=== PATIENT | female | born 1990 | race Caucasian/White ===

== ENCOUNTER 2016-12-30 22:58 | Emergency (ER) | payer OTHER ==
[2016-12-30] MEDS ORDERED: SODIUM CHLORIDE 0.9% 1,000 ML IV ONE (23:23)
[2016-12-30] MEDS ORDERED: ONDANSETRON 4 MG/2 ML VIAL IVP STA (23:23)
[2016-12-30] MEDS ORDERED: ONDANSETRON 4 MG/2 ML VIAL ONE (23:31)
[2016-12-31] LABS: BILIRUBIN,URINE NEGATIVE (NEGATIVE); PH,URINE 6.5 PH (5.0-7.5)
[2016-12-31 00:05] LABS: HCG UR QUAL NEGATIVE; UA CHARGE (STRIP ONLY) YES; UR CULTURE IF IND NOT INDICATED
[2016-12-31 00:06] LABS: ALBUMIN/GLOBULIN RATIO 1.7 (1.0-2.2); BILIRUBIN,TOTAL 0.6 mg/dL (0.2-1.0); CALCIUM 9.6 mg/dL (8.5-10.3); CREATININE 0.7 mg/dL (0.4-1.0); POTASSIUM 3.7 mmol/L (3.5-5.0); TOTAL PROTEIN 7.5 g/dL (6.7-8.2)
[2016-12-31] MEDS ORDERED: HYDROmorphone 1 MG/ML SYRINGE ONE ×2 (00:07→02:33)
[2016-12-31 00:09] LABS: BASOPHILS % (AUTO) 0.4 %; EOSINOPHILS # (AUTO) 0.2 10^3/uL (0.0-0.7); EOSINOPHILS % (AUTO) 1.5 %; HCT - HEMATOCRIT 40.1 % (37.0-47.0); HGB - HEMOGLOBIN 13.4 g/dL (12.0-16.0); LYMPHOCYTES % (AUTO) 36.6 %; MEAN CORPUSCULAR HEMOGLOBIN 29.8 pg (27.0-31.0); MEAN CORPUSCULAR HGB CONC 33.5 g/dL (32.0-36.0); MEAN CORPUSCULAR VOLUME 88.8 fL (81.0-99.0); MEAN PLATELET VOLUME 7.7 fL (7.9-10.8); MONOCYTES # (AUTO) 0.5 10^3/uL (0.0-1.0); MONOCYTES % (AUTO) 4.8 %; NEUTROPHILS # (AUTO) 6.1 10^3/uL (1.5-6.6); NEUTROPHILS % (AUTO) 56.7 %; RED BLOOD COUNT 4.51 10^6/uL (4.20-5.40); RED CELL DISTRIBUTION WIDTH 13.9 % (12.0-15.0); UNCORRECTED WHITE BLOOD COUNT 10.8 x10^3/uL; WHITE BLOOD COUNT 10.8 x10^3/uL (4.8-10.8)
--- NOTE | 2016-12-31 01:07 | CT Preliminary Report ---
Exam: CT Abdomen/Pelvis W/O IMPRESSION: 1. Nonobstructing 2 mm stone in the left kidney. No other urolithiasis seen. 2. Appendix is retrocecal and appears normal. 3. Possible complex 3.6 cm left ovarian cyst. [facility] SITE ID: [id number]
--- NOTE | 2016-12-31 01:09 | CT Report ---
EXAM: CT ABDOMEN AND PELVIS (CT KUB) EXAM DATE: 12/31/2016 12:42 AM. CLINICAL HISTORY: Right side pain. COMPARISONS: None. TECHNIQUE: Routine axial helical CT imaging was performed through the abdomen and pelvis without IV c ontrast. Reconstructions: Coronal and sagittal. In accordance with CT protocol optimization, one or more of the following dose reduction techniques w ere utilized for this exam: automated exposure control, adjustment of mA and/or KV based on patient s ize, or use of iterative reconstructive technique. FINDINGS: Lung Bases: Minimal bibasilar atelectasis. Right Kidney/Ureter: No stones, hydronephrosis, or hydroureter. No perinephric fat stranding. Left Kidney/Ureter: Nonobstructing 2 mm stone in the kidney. No ureteral stone or obstructive uropath y identified. Other Solid Organs: Noncontrast images of the solid organs are grossly unremarkable. Gallbladder/Bile Ducts: Status post cholecystectomy. Peritoneal Cavity: No bowel obstruction seen. No diverticulitis. No free air or free fluid. No lympha denopathy. Appendix is retrocecal and appears normal. Pelvic Organs: Masslike area in the left adnexa measuring about 3.6 cm, possibly complex ovarian cyst . Visualized pelvic organs are otherwise unremarkable. Vasculature: Unremarkable. Other: None. IMPRESSION: 1. Nonobstructing 2 mm stone in the left kidney. No other urolithiasis seen. 2. Appendix is retrocecal and appears normal. 3. Possible complex 3.6 cm left ovarian cyst. [facility] Referring Provider Line: [phone] SITE ID: [id number]
[2016-12-31] MEDS ORDERED: ONDANSETRON 4 MG/2 ML VIAL IVP STA (02:25)
[2016-12-31] MEDS ORDERED: KETOROLAC 60 MG/2 ML VIAL IVP STA (02:25)
[2016-12-31] MEDS ORDERED: HYDROmorphone 1 MG/ML SYRINGE IVP STA ×2 (02:25)
[2016-12-31] MEDS ORDERED: KETOROLAC 30 MG/ML VIAL ONE (02:33)
[2016-12-31] MEDS ORDERED: ONDANSETRON 4 MG/2 ML VIAL ONE (02:33)
--- NOTE | 2016-12-31 02:37 | ED Physician Documentation ---
History of Present Illness - Stated complaint Stated Complaint: N/V/PX IN RT SIDE - Chief complaint Chief Complaint: Abd Pain - Additonal information Additional information: Patient is a 26-year-old female who presents with the complaint of right side pain off and on for 2 days worse this afternoon. She had 2 paroxysms of pain, one episode occurred at 2 PM and another at 6 PM. The second episode was associated with nausea and vomiting. In her mind it feels like biliary colic which she has had in the past and is now status post cholecystectomy. She denies any fever or chills and has no pulmonary complaints. She has not had constipation diarrhea or lower urinary symptoms. Review of systems: For pertinent positive and negatives in the review of systems please see the history of present illness, otherwise all other systems have been reviewed and are negative. Dragon disclaimer: Parts of this medical record were created using voice recognition technology. Because of the inherent limitations of this system, occasional same sounding word substitutions do occur and persist despite proofreading. Please read the document for context. Review of Systems Constitutional: denies: Fever, Chills GI: reports: Abdominal Pain. denies: Nausea, Vomiting, Diarrhea PD PAST MEDICAL HISTORY - Past Medical History Past Medical History: No - Past Surgical History Past Surgical History: Yes General: Cholecystectomy - Present Medications Home Medications: Ambulatory Orders Medication Instructions Recorded Confirmed No Known Home Medications [No 12/30/16 12/30/16 Known Home Medications] - Allergies Allergies/Adverse Reactions: Allergies Allergy/AdvReac Type Severity Reaction Status Date / Time No Known Drug Allergies Allergy Verified 12/30/16 23:05 - Social History Does the pt smoke?: Yes Smoking Status: Current every day smoker Does the pt drink ETOH?: No Does the pt have substance abuse?: No - Immunizations Immunizations are current?: Yes - POLST Patient has POLST: No PD ED PE NORMAL - Vitals Vital signs reviewed: Yes - General General: Alert and oriented X 3, No acute distress, Well developed/nourished - HEENT HEENT: Atraumatic, Pharynx benign - Neck Neck: Supple, no meningeal sign - Cardiac Cardiac: RRR - Respiratory Respiratory: No respiratory distress, Clear bilaterally - Abdomen Abdomen: Normal bowel sounds, Soft, Non tender, Non distended - Back Back: No CVA TTP - Derm Derm: Normal color, Warm and dry - Extremities Extremities: No deformity Results - Vitals Vitals: Vital Signs - 24 hr 12/30/16 12/31/16 12/31/16 23:04 00:22 02:15 Temperature 36.9 C 36.3 C L Heart Rate 89 72 78 Respiratory 18 16 15 Rate Blood Pressure 131/86 H 125/85 H 116/70 O2 Saturation 97 97 98 Oxygen O2 Source Room air - Labs Labs: Laboratory Tests 12/30/16 12/30/16 12/30/16 23:33 23:33 23:33 WBC 10.8 RBC 4.51 Hgb 13.4 Hct 40.1 MCV 88.8 MCH 29.8 MCHC 33.5 RDW 13.9 Plt Count 321 MPV 7.7 L Neut # 6.1 Lymph # 4.0 H Ida # 0.5 Eos # 0.2 Baso # 0.0 Absolute Nucleated RBC 0.00 Nucleated RBCs 0.0 Sodium 138 Potassium 3.7 Chloride 104 Carbon Dioxide 26 Anion Gap 8.0 BUN 12 Creatinine 0.7 Estimated GFR (MDRD) 100 Glucose 92 Calcium 9.6 Total Bilirubin 0.6 AST 20 ALT 18 Alkaline Phosphatase 62 Total Protein 7.5 Albumin 4.7 Globulin 2.8 Albumin/Globulin Ratio 1.7 Lipase 28 Urine Color YELLOW Urine Clarity CLEAR Urine pH 6.5 Ur Specific [place] 1.020 Urine Protein NEGATIVE Urine Glucose (UA) NEGATIVE Urine Ketones TRACE Urine Occult Blood TRACE-INTA Urine Nitrite NEGATIVE Urine Bilirubin NEGATIVE Urine Urobilinogen 0.2 (NORMAL) Ur Leukocyte Esterase NEGATIVE Ur Microscopic Review NOT INDICATED Urine Culture Comments NOT INDICATED Urine HCG, Qual 12/30/16 23:33 WBC RBC Hgb Hct MCV MCH MCHC RDW Plt Count MPV Neut # Lymph # Ida # Eos # Baso # Absolute Nucleated RBC Nucleated RBCs Sodium Potassium Chloride Carbon Dioxide Anion Gap BUN Creatinine Estimated GFR (MDRD) Glucose Calcium Total Bilirubin AST ALT Alkaline Phosphatase Total Protein Albumin Globulin Albumin/Globulin Ratio Lipase Urine Color Urine Clarity Urine pH Ur Specific [place] 1.020 Urine Protein Urine Glucose (UA) Urine Ketones Urine Occult Blood Urine Nitrite Urine Bilirubin Urine Urobilinogen Ur Leukocyte Esterase Ur Microscopic Review Urine Culture Comments Urine HCG, Qual NEGATIVE PD MEDICAL DECISION MAKING - ED course ED course: Patient is a 26-year-old female who is status post cholecystectomy otherwise is healthy. She had dull achy right-sided abdominal pain for 2 days followed by acute onset of nausea vomiting and right-sided pain tonight. On exam she is got a soft flat nontender abdomen. There is no CVA tenderness. There are no pulmonary complaints that would suggest a pulmonary cause to right side pain. Routine blood work was done and is normal. Liver function studies and urinalysis are also normal. A nonenhanced CT scan demonstrates a normal- appearing right kidney. There is a incidental small kidney stone found on the left and a 3.6 cm cyst that may be complex in nature on the left ovary. There are no findings today laboratory radiographically that suggests the cause of the patient's pain here today. Given the finding of the kidney stone on the left may be possible that she might have passed a small stone on the right. This was discussed with her. We will have her continue with IV fluids anti- inflammatories and have her follow-up. In regard to the cyst on the left ovary she has appointment with her WIRELESS ENGINEER tomorrow since she is getting a LEEP done she will pass on the CT report to her physician for follow-up. Disposition: To home Clinical impression: 1. Right-sided abdominal pain cause unclear 2. Incidental finding of small stone in left kidney and large left ovarian complex cyst
[2016-12-31 03:01] VITALS: BP 113/73
== END 2016-12-31 03:05 | disposition home or self-care (01) ==
LOC: ED 22:58
DX: R10.9 Unspecified abdominal pain (principal); N20.0 Calculus of kidney; N83.202 Unspecified ovarian cyst, left side; F17.200 Nicotine dependence, unspecified, uncomplicated
CPT/HCPCS: 36415; 74176; 80053; 81003; 81025; 83690; 85025; 96374; 96375; 96376; 99284; J1170; 81001; 87086

== ENCOUNTER 2017-03-14 20:42 | Emergency (ER) | payer OTHER ==
[2017-03-14] MEDS ORDERED: SODIUM CHLORIDE 0.9% 1,000 ML IV ONE (20:52)
[2017-03-14 21:00] LABS: BILIRUBIN,URINE NEGATIVE (NEGATIVE)
[2017-03-14 21:07] LABS: UA CHARGE (STRIP ONLY) YES; UR CULTURE IF IND NOT INDICATED
[2017-03-14 21:08] LABS: HCG UR QUAL POSITIVE
[2017-03-14 21:27] LABS: BASOPHILS % (AUTO) 0.3 %; EOSINOPHILS # (AUTO) 0.1 10^3/uL (0.0-0.7); EOSINOPHILS % (AUTO) 1.2 %; HCT - HEMATOCRIT 37.8 % (37.0-47.0); LYMPHOCYTES # (AUTO) 3.4 10^3/uL (1.5-3.5); LYMPHOCYTES % (AUTO) 35.6 %; MEAN CORPUSCULAR HEMOGLOBIN 29.9 pg (27.0-31.0); MEAN CORPUSCULAR HGB CONC 34.3 g/dL (32.0-36.0); MEAN CORPUSCULAR VOLUME 87.2 fL (81.0-99.0); MEAN PLATELET VOLUME 7.2 fL (7.9-10.8); MONOCYTES # (AUTO) 0.4 10^3/uL (0.0-1.0); MONOCYTES % (AUTO) 4.5 %; NEUTROPHILS # (AUTO) 5.6 10^3/uL (1.5-6.6); NEUTROPHILS % (AUTO) 58.4 %; RED BLOOD COUNT 4.34 10^6/uL (4.20-5.40); RED CELL DISTRIBUTION WIDTH 12.5 % (12.0-15.0); UNCORRECTED WHITE BLOOD COUNT 9.6 x10^3/uL; WHITE BLOOD COUNT 9.6 x10^3/uL (4.8-10.8)
[2017-03-14 21:36] LABS: ALBUMIN/GLOBULIN RATIO 1.5 (1.0-2.2); BILIRUBIN,TOTAL 0.4 mg/dL (0.2-1.0); CALCIUM 9.2 mg/dL (8.5-10.3); CREATININE 0.6 mg/dL (0.4-1.0); POTASSIUM 3.2 mmol/L (3.5-5.0)
[2017-03-14] MEDS ORDERED: POTASSIUM CHLORIDE 20 MEQ TABLET PO STA (21:44)
[2017-03-14] MEDS ORDERED: POTASSIUM CHLORIDE 20 MEQ TABLET PO ONE (21:54)
--- NOTE | 2017-03-14 21:54 | ED Physician Documentation ---
PD HPI SYNCOPE - Stated complaint Stated Complaint: ABD PX - Chief complaint Chief Complaint: Abd Pain - History obtained from History obtained from: Patient - History of Present Illness Witnessed: Witnessed Timing - onset: How many hours ago (1) Duration: Minutes Preceding symptoms: Abdominal pain Associated symptoms: No: Incontinant of urine, Incontinant of stool, Headache, Vision changes Injury occurred: No: Head injury, Neck injury, Bit tongue Similar symptoms before: Has not had sx before Recently seen: Not recently seen - Additional information Additional information: Patient is a 26 year old female, ten weeks by dates who is presenting to the emergency department for syncope. Patient states that she had abdominal pain earlier this evening. It came in a wave and caused her to pass out. patient states that the has been having intermittent pain, almost since her gallbladder had been taken out. patient had a complete work-up including CT abd /pelvis that was within normal limits. Review of Systems Constitutional: denies: Fever, Chills, Myalgias Eyes: denies: Loss of vision, Photophobia Ears: denies: Ear pain, Drainage/discharge Nose: denies: Rhinorrhea / runny nose, Congestion Throat: reports: Reviewed and negative Cardiac: denies: Chest pain / pressure, Palpitations Respiratory: denies: Dyspnea, Cough, Wheezing GI: reports: Abdominal Pain, Nausea. denies: Vomiting, Constipation, Diarrhea : denies: Discharge, Vaginal bleeding Skin: denies: Rash, Lesions, Abrasion (s) Musculoskeletal: denies: Neck pain, Back pain, Extremity pain, Joint pain Neurologic: reports: Syncope. denies: Generalized weakness, Focal weakness, Headache, Head injury Immunocompromised: denies: Immunocompromised PD PAST MEDICAL HISTORY - Past Medical History Past Medical History: No Cardiovascular: None Respiratory: None Neuro: None Endocrine/Autoimmune: None GI: None SMELLER: None : None Psych: None Musculoskeletal: None Derm: None - Past Surgical History Past Surgical History: Yes General: Cholecystectomy /SMELLER: section - Present Medications Home Medications: Ambulatory Orders Medication Instructions Recorded Confirmed No Known Home Medications [No 03/14/17 03/14/17 Known Home Medications] - Allergies Allergies/Adverse Reactions: Allergies Allergy/AdvReac Type Severity Reaction Status Date / Time No Known Drug Allergies Allergy Verified 03/14/17 20:49 - Social History Does the pt smoke?: Yes Smoking Status: Current every day smoker Does the pt drink ETOH?: No Does the pt have substance abuse?: No - Immunizations Immunizations are current?: Yes - POLST Patient has POLST: No PD ED PE NORMAL - Vitals Vital signs reviewed: Yes - General General: Alert and oriented X 3, No acute distress, Well developed/nourished - HEENT HEENT: Atraumatic, PERRL, Moist mucous membranes - Neck Neck: Supple, no meningeal sign, No JVD - Cardiac Cardiac: RRR, No murmur, No rub - Respiratory Respiratory: No respiratory distress, Clear bilaterally - Derm Derm: Normal color, Warm and dry, No rash - Extremities Extremities: No deformity, Normal ROM s pain, No edema - Neuro Neuro: Alert and oriented X 3, prison teacher 2-12 intact, No motor deficit, No sensory deficit, Normal speech - Psych Psych: Normal mood Results - Vitals Vitals: Vital Signs - 24 hr 03/14/17 03/14/17 20:44 22:20 Temperature 36.9 C 36.6 C Heart Rate 101 H 82 Respiratory 16 18 Rate Blood Pressure 142/85 H 106/71 O2 Saturation 100 100 Oxygen O2 Source Room air - EKG (time done) 2101 Rate: Rate (enter#) (93) Rhythm: NSR Blanch: Normal Intervals: Normal ND QRS: Normal Ischemia: Normal ST segments - Labs Labs: Laboratory Tests 03/14/17 03/14/17 03/14/17 20:55 20:55 21:20 WBC 9.6 RBC 4.34 Hgb 13.0 Hct 37.8 MCV 87.2 MCH 29.9 MCHC 34.3 RDW 12.5 Plt Count 338 MPV 7.2 L Neut # 5.6 Lymph # 3.4 Bonner # 0.4 Eos # 0.1 Baso # 0.0 Absolute Nucleated RBC 0.00 Nucleated RBC % 0.0 Sodium Potassium Chloride Carbon Dioxide Anion Gap BUN Creatinine Estimated GFR (MDRD) Glucose Calcium Total Bilirubin AST ALT Alkaline Phosphatase Total Protein Albumin Globulin Albumin/Globulin Ratio Lipase Urine Color YELLOW Urine Clarity CLEAR Urine pH 6.0 Ur Specific [place] 1.025 1.025 Urine Protein NEGATIVE Urine Glucose (UA) NEGATIVE Urine Ketones 15 H Urine Occult Blood NEGATIVE Urine Nitrite NEGATIVE Urine Bilirubin NEGATIVE Urine Urobilinogen 0.2 (NORMAL) Ur Leukocyte Esterase NEGATIVE Ur Microscopic Review NOT INDICATED Urine Culture Comments NOT INDICATED Urine HCG, Qual POSITIVE 03/14/17 21:20 WBC RBC Hgb Hct MCV MCH MCHC RDW Plt Count MPV Neut # Lymph # [place] # Eos # Baso # Absolute Nucleated RBC Nucleated RBC % Sodium 136 Potassium 3.2 L Chloride 104 Carbon Dioxide 21 Anion Gap 11.0 BUN 8 Creatinine 0.6 Estimated GFR (MDRD) 120 Glucose 90 Calcium 9.2 Total Bilirubin 0.4 AST 22 ALT 31 Alkaline Phosphatase 43 Total Protein 7.0 Albumin 4.2 Globulin 2.8 Albumin/Globulin Ratio 1.5 Lipase 16 L Urine Color Urine Clarity Urine pH Ur Specific [place] Urine Protein Urine Glucose (UA) Urine Ketones Urine Occult Blood Urine Nitrite Urine Bilirubin Urine Urobilinogen Ur Leukocyte Esterase Ur Microscopic Review Urine Culture Comments Urine HCG, Qual - Rads (name of study) pelvic ultrasound Radiology: Final report received (viable IUP around 10 weeks), EMP read contemporaneously PD MEDICAL DECISION MAKING - ED course Complexity details: reviewed old records, reviewed results, re-evaluated patient , considered differential, d/w patient ED course: Patient was seen and examined at bedside. IV access was gained. ekg was performed and was within normal limits. Patient was treated with a fluid bolus and ultrasound was ordered. when patient's diagnostics came back she was found to have a normal IUP and slightly dehydrated with low potassium. Patient's potassium was replaced, and patient required no further work up and was stable for discharge [facility] outpatient follow up. Departure - Departure Disposition: 01 Home, Self Care Clinical Impression: BPV (benign positional vertigo), Normal in first trimester, Right sided abdominal pain Condition: Good Instructions: ED Dizziness Syncope Fainting W Pre Follow-Up: Star Nielsen ARNP [Primary Care Provider] - Comments: Your diagnostics today were relatively normal. You were mildly dehydrated. the fetus appears well. It is important that you stay well hydrated. You can take tylenol as needed for pain. You should go to your scheduled appointment with your ob. You may return to the emergency department at any time for new, worsening or uncontrollable symptoms. Forms: Activity restrictions
--- NOTE | 2017-03-14 22:03 | Ultrasound Preliminary Report ---
Exam: US OB FIRST TRIMESTER IMPRESSION: 1. Single living intrauterine . Embryo: CRL (crown-rump length) 2.11 mm = 8 weeks 4 days, TRUDY 10/18/2017. LMP: 01/05/2017, EGA 9 weeks 5 days, TRUDY 10/12/2017. 2. Possible anterior uterine contraction. Uterine fibroid not excluded. 3. Possible small inferiorly located perigestational bleed measuring 6 x 5 mm [facility] SITE ID: [id number]
--- NOTE | 2017-03-14 22:06 | Ultrasound Report ---
EXAM: FIRST TRIMESTER OBSTETRIC ULTRASOUND (Less than 11 weeks) EXAM DATE: 03/14/2017 09:40 PM. CLINICAL HISTORY: Right lower quadrant pain, syncope. LMP: 01/05/2017, EGA 9 weeks 5 days, TRUDY 10/12/2017. COMPARISONS: None. TECHNIQUE: Transabdominal ultrasound examination with static image documentation. Limited imaging sin ce the bladder was not full. Findings: Gestational Sac: Single intrauterine. Mean gestational sac diameter: 37.1 mm = 9 weeks 0 days. Embryo: CRL (crown-rump length) 2.11 mm = 8 weeks 4 days, TRUDY 10/18/2017. Cardiac activity: 164 beats per minute. Yolk sac: 4.8 x 4.5 mm. Amniotic fluid: Not accurately assessed at this gestational age. Early placenta: Not visible at this gestational age. Other: Possible small inferiorly located perigestational bleed measuring 6 x 5 mm. MATERNAL STRUCTURES: Uterus: Anteverted. 10.2 x 5.8 x 8.2 cm. Possible anterior uterine contraction. Uterine fibroid not e xcluded. Cervix: Closed. Right Ovary/Adnexa: Unremarkable. The ovary measures 4 x 1.4 x 2.5 cm, volume 7.5 cc. Left Ovary/Adnexa: Unremarkable. The ovary measures 4.1 x 1.4 x 3.1 cm, volume 9 cc. Blood flow is seen in both ovaries. Free Fluid: None. IMPRESSION: 1. Single living intrauterine . Embryo: CRL (crown-rump length) 2.11 mm = 8 weeks 4 days, TRUDY 10/18/2017. LMP: 01/05/2017, EGA 9 weeks 5 days, TRUDY 10/12/2017. 2. Possible anterior uterine contraction. Uterine fibroid not excluded. 3. Possible small inferiorly located perigestational bleed measuring 6 x 5 mm [facility] Referring Provider Line: [phone] SITE ID: [id number]
[2017-03-14 22:21] VITALS: BP 106/71
== END 2017-03-14 22:32 | disposition home or self-care (01) ==
LOC: ED 20:42
DX: O99.89 Other specified diseases and conditions complicating pregnancy, childbirth and the puerperium (principal); H81.10 Benign paroxysmal vertigo, unspecified ear; O99.331 Smoking (tobacco) complicating pregnancy, first trimester; O99.281 Endocrine, nutritional and metabolic diseases complicating pregnancy, first trimester; E86.0 Dehydration; Z3A.08 8 weeks gestation of pregnancy; R10.9 Unspecified abdominal pain
CPT/HCPCS: 36415; 76801; 80053; 81003; 81025; 83690; 85025; 93005; 96360; 99283; 99284; A9270; 81001; 87086

== ENCOUNTER 2018-07-01 20:30 | Emergency (ER) | payer OTHER ==
[2018-07-01 20:42] VITALS: BP 130/67
[2018-07-01 21:23] LABS: HCG UR QUAL NEGATIVE
--- NOTE | 2018-07-01 22:40 | XRAY Report ---
Reason: snowboarding, limited ROM, unable to bear weight Procedure Date: 07/01/2018 Accession Number: [id number] / [id number] Procedure: XR - Hip w/Pelvis 2-3V RT CPT Code: FULL RESULT: EXAM: RIGHT HIP RADIOGRAPHY EXAM DATE: 07/01/2018 10:10 PM. CLINICAL HISTORY: Snowboarding, limited ROM, unable to bear weight. COMPARISON: None. TECHNIQUE: 2 views. FINDINGS: Bones: Normal. No fractures or bone lesion. Joints: Normal. No dislocation. The hip joint space is preserved. Soft Tissues: Normal. No soft tissue swelling. IMPRESSION: Normal hip radiography. [facility]
[2018-07-01] MEDS ORDERED: NAPROXEN 250 MG TABLET PO STA (23:16)
--- NOTE | 2018-07-01 23:18 | ED Physician Documentation ---
PD HPI LOWER EXT INJURY - Stated complaint Stated Complaint: R LEG INJ - Chief complaint Chief Complaint: Ext Problem - History obtained from History obtained from: Patient - History of Present Illness PD HPI LOW EXT INJURY LOCATION: Right, Hip, Buttock Type of injury: Fall, Blunt / blow Where injury occurred: Other (Occurred while snowboarding today) Timing - onset: Today Timing - details: Abrupt onset Severity Comments: moderate Improved by: Immobilization Worsened by: Moving, Palpating Associated symptoms: No: Weakness, Numbness, Tingling, Swelling Contributing factors: No: Anticoagulated Similar symptoms before: Has not had sx before Recently seen: Not recently seen Review of Systems Constitutional: denies: Fever Eyes: denies: Discharge Ears: denies: Ear pain Cardiac: denies: Chest pain / pressure GI: denies: Abdominal Pain Musculoskeletal: reports: Extremity pain. denies: Neck pain, Back pain Neurologic: denies: Head injury PD PAST MEDICAL HISTORY - Past Medical History Cardiovascular: None Respiratory: None Endocrine/Autoimmune: None GI: None SUPERVISOR LIQUID YEAST: None : None Psych: None Musculoskeletal: None Derm: None - Past Surgical History Past Surgical History: Yes General: Cholecystectomy /SUPERVISOR LIQUID YEAST: section - Present Medications Home Medications: Ambulatory Orders Medication Instructions Recorded Confirmed Naproxen 500 mg PO BID PRN #60 tablet 07/01/18 - Allergies Allergies/Adverse Reactions: Allergies Allergy/AdvReac Type Severity Reaction Status Date / Time No Known Drug Allergies Allergy Verified 03/14/17 20:49 - Social History Does the pt smoke?: Yes Smoking Status: Current every day smoker Does the pt drink ETOH?: No Does the pt have substance abuse?: No - Immunizations Immunizations are current?: Yes - POLST Patient has POLST: No PD ED PE NORMAL - General General: Alert and oriented X 3, No acute distress - HEENT HEENT: Atraumatic, PERRL, EOMI, Ears normal - Derm Derm: Normal color - Extremities Extremities: No deformity, Normal ROM s pain, No edema. No: No tenderness to palpate (The patient is tender to palpation in the right hip, The patient has no sacrum tenderness or lumbar spine tenderness. The patient has normal range of motion. There is no crepitus. The patient has no knee or ankle or foot tenderness.The patient has normal dorsalis pedis pulse and normal cap refill) - Neuro Neuro: Alert and oriented X 3, Normal speech - Psych Psych: Normal mood Results - Vitals Vitals: Vital Signs - 24 hr 07/01/18 20:39 Temperature 36.6 C Heart Rate 88 Respiratory 18 Rate Blood Pressure 130/67 O2 Saturation 97 Oxygen O2 Source Room air - Labs Labs: Laboratory Tests 07/01/18 21:00 Ur Specific [place] >=1.030 H Urine HCG, Qual NEGATIVE - Rads (name of study) XR hip Radiology: Final report received, See rad report PD MEDICAL DECISION MAKING - ED course ED course: No acute fracture, the patient appears appropriate for discharge and ongoing outpatient management. I discussed warning signs and recommended returning for any worsening or concerns Departure - Departure Disposition: 01 Home, Self Care Clinical Impression: Contusion, hip Qualifiers: Encounter type: initial encounter Laterality: unspecified laterality Qualified Code(s): S70.00XA - Contusion of unspecified hip, initial encounter Condition: Good Instructions: ED Contusion Lower Extr Ch Follow-Up: REANNA Calvillo [Provider Group] - Within 1 week (Please ask for referral to physical therapy and if your symptoms are not improving you may need an outpatient MRI) Prescriptions: Naproxen 500 mg PO BID PRN #60 tablet PRN Reason: Pain Comments: Please return to the emergency department for worsening symptoms or any concerns Forms: Activity restrictions
== END 2018-07-01 23:45 | disposition home or self-care (01) ==
LOC: ED 20:30
DX: S70.01XA Contusion of right hip, initial encounter (principal); V00.311A Fall from snowboard, initial encounter; Y93.23 Activity, snow (alpine) (downhill) skiing, snowboarding, sledding, tobogganing and snow tubing; F17.200 Nicotine dependence, unspecified, uncomplicated
CPT/HCPCS: 73502; 81025; 99283; A9270